=== PATIENT | male | born 1945 | race Two or more races ===

== ENCOUNTER 2022-03-28 12:51 | Emergency (ER) | payer SELFPAY ==
[~2022-03-28] VITALS: Ht 175.3 cm; Wt 100.6 kg
[2022-03-28 13:33] LABS: Basophils # (auto) 0.2 10 ^3/uL (0-0.2); Basophils % (auto) 1.1 % (0.0-2.0); Eosinophils # (auto) 0.2 10 ^3/uL (0-0.8); Eosinophils % (auto) 1.1 % (0.0-7.0); Hematocrit 43.2 % (41.0-53.0); Hemoglobin 13.7 g/dL (13.5-17.5); Lymphocytes # (auto) 3.6 10 ^3/uL (0.4-5.4); Mean Corpuscular Hemoglobin 28.6 pg (28.0-32.0); Mean Corpuscular Hgb Conc. 31.6 g/dL (32.0-36.0); Mean Corpuscular Volume 90.5 fL (80.0-100.0); Monocytes # (auto) 0.9 10 ^3/uL (0-1.3); Monocytes % (auto) 5.7 % (0.0-12.0); Neutrophils # (auto) 10.7 10 ^3/uL (1.6-8.6); Neutrophils % (auto) 69.1 % (37.0-80.0); Nucleated Red Blood Cells % 0.1 %; Red Blood Cells 4.78 10^6/uL (4.5-5.90); Red Cell Distribution Width 17.3 % (11.8-14.3); White Blood Cell 15.5 10^3/uL (4.4-10.8)
[2022-03-28 13:36] LABS: Urine Bacteria NONE SEEN /hpf (None Seen); Urine Blood Negative /uL (Negative); Urine Mucus FEW (None Seen); Urine Specific Gravity 1.021 (1.001-1.035); Urine WBC 1 /hpf (0 - 3)
[2022-03-28] MEDS ORDERED: SODIUM CHLORIDE 0.9% 1,000 ML IV ONE (14:00)
[2022-03-28 14:17] LABS: Chloride 110 mmol/L (98-107); Potassium 4.1 mmol/L (3.5-5.1); Sodium 140 mmol/L (136-145)
[2022-03-28 14:18] LABS: Alanine Aminotransferase 22 U/L (16-61); Alkaline Phosphatase 85 U/L (45-117); Anion Gap 10 (5-15); Aspartate Aminotransferase 30 U/L (15-37); BUN/Creatinine Ratio 15.4; Blood Urea Nitrogen 25 mg/dL (7-18); Carbon Dioxide 20 mmol/L (21-32); GFR African American 54 mL/min; GFR Non-African American 44 mL/min; Glucose 190 mg/dL (74-106)
[2022-03-28 14:19] LABS: Bilirubin, Total 0.5 mg/dL (0.2-1.0); Calcium 8.4 mg/dL (8.5-10.1)
[2022-03-28 14:20] LABS: Albumin 2.9 g/dL (3.4-5.0)
[2022-03-28 16:15] VITALS: BP 118/62
== END 2022-03-28 16:30 | disposition short-term general hospital (02) ==
LOC: ER 12:51
DX: I71.30 Abdominal aortic aneurysm, ruptured, unspecified (principal); I95.9 Hypotension, unspecified
CPT/HCPCS: 36415; 74176; 80053; 81001; 83690; 85025